=== PATIENT | female | born 1965 | race Two or more races ===

== ENCOUNTER 2018-01-01 22:48 | Emergency (ER) | END 2018-01-02 04:00 | disposition home or self-care (01) ==

== ENCOUNTER 2018-02-12 18:15 | Emergency (ER) | END 2018-02-12 20:15 | disposition home or self-care (01) ==

== ENCOUNTER 2018-04-10 14:11 | Emergency (ER) | END 2018-04-10 20:44 | disposition home or self-care (01) ==

== ENCOUNTER 2018-06-05 09:01 | Emergency (ER) | END 2018-06-05 13:01 | disposition home or self-care (01) ==

== ENCOUNTER 2018-07-27 15:59 | Emergency (ER) | END 2018-07-27 18:15 | disposition home or self-care (01) ==

== ENCOUNTER 2019-08-03 23:41 | Emergency (ER) | payer MEDICAID ==
[~2019-08-03] VITALS: Ht 154.9 cm; Wt 68.5 kg
[~2019-08-03 23:41] MED LIST: AZIT250T PO; CETI10CA PO; DIAZ5TAB PO; FLUT9.9S NASAL; GUAI5SYR2 PO; HYDR-3498 PO; IBUP-1542 PO; LISI-313 PO; LISI30TA47 PO; METH750T93 PO; NAPR-688 PO; NAPR-958 PO; NPH10OT LEFT EAR; TRIAMCINOLONE BC
[2019-08-03 23:50] VITALS: Ht 154.9 cm; Wt 68.5 kg
[2019-08-04] MEDS ORDERED: KETOROLAC 30 MG INJ IV STA (02:48)
[2019-08-04] MEDS ORDERED: SOD CHLORIDE 0.9% 1,000 ML IV STA (02:48)
[2019-08-04] MEDS ORDERED: IOHEXOL 300MG/ML 30 ML BTL ONE (05:17)
[2019-08-04] MEDS ORDERED: SOD CHLORIDE 0.9% 100 ML ONE (05:17)
[2019-08-04] MEDS ORDERED: IOHEXOL 300MG/ML 150 ML BTL ONE (05:17)
[2019-08-04 05:38] VITALS: BP 120/70; PULSE 76; RESP 20
== END 2019-08-04 05:39 | disposition home or self-care (01) ==
LOC: FTE 23:41
DX: B34.9 Viral infection, unspecified (principal); R10.2 Pelvic and perineal pain
CPT/HCPCS: 36415; 71045; 74177; 76830; 76856; 80053; 81001; 83690; 84484; 85025; 87400; 93005; 96374; J1885; J7030; Q9967; Z7502; Z7610